=== PATIENT | female | born 1960 | race Caucasian/White ===

== ENCOUNTER → 2018-03-02 | Outpatient (CLI) | payer OTHER ==
[~2018-03-02] MED LIST: DICL500C66 PO; IBU600 PO; LOR5 PO; MULT-145 PO; VITAMIN B12
--- NOTE | 2018-03-02 15:02 | RADIOLOGY IMAGING REPORT ---
FACILITY: [facility] [place] PATIENT NAME: Shellie Stephens : 1960 MR: [id number] V: [id number] EXAM DATE: ORDERING PHYSICIAN: CARLOS SUAZO TECHNOLOGIST: Location: [facility] Patient: Shellie Stephens : 1960 Visit/Account:[id number] Date of Sevice: 03/02/2018 Exam type: SOFT TISSUE NON-SPECIFIC History: Palpable lump superficial to left shoulder Comparison: None. Findings: Multiple sonographic images obtained superior to the left shoulder demonstrate no specific mass cysti c or solid. Real-time imaging by the paper core machine operator demonstrated but appear to be a muscle bundle. If the mass meets of strong clinical concern CT or MR is recommended IMPRESSION: 1. No definite mass identified sonographically superior to the left shoulder. If this remains a str sherrie clinical concern CT or MR recommended for further evaluation Report Dictated By: Monisha Greene MD at 03/02/2018 2:56 PM Report E-Signed By: Monisha Greene MD at 03/02/2018 2:58 PM WSN:[email or web address]
== END ==
LOC: US 13:22
PROVIDERS: ATTEND Nurse Practitioner Family
DX: M25.812 Other specified joint disorders, left shoulder (principal)
CPT/HCPCS: 76999

== ENCOUNTER → 2018-04-12 | Outpatient (CLI) | payer OTHER ==
[~2018-04-12] MED LIST changes: +OMEP40CA48 PO; +RIZA10TA PO
--- NOTE | 2018-04-12 10:33 | RADIOLOGY IMAGING REPORT ---
FACILITY: [facility] [place] PATIENT NAME: Shellie Stephens : 1960 MR: [id number] V: [id number] EXAM DATE: ORDERING PHYSICIAN: GENET FOSTER TECHNOLOGIST: Location: [facility] [place] Patient: Shellie Stephens : 1960 Visit/Account:[id number] Date of Sevice: 04/12/2018 EXAMINATION: CT Abdomen Without Contrast 04/12/2018 4:57 AM HISTORY: Left upper quadrant abdominal wall bulge TECHNIQUE: Spiral scan was through the abdomen without intravenous contrast. One of the following dose optimization techniques was utilized in the performance of this exam: Autom ated exposure control; adjustment of the mA and/or kV according to the patient's size; or use of an i terative reconstruction technique. Specific details can be referenced in the facility's radiology C T exam operational policy. COMPARISON STUDIES: Ultrasound 03/02/2018. FINDINGS: Liver / biliary: Prior cholecystectomy. Negative liver. No biliary dilatation. Pancreas: negative Spleen: negative Adrenal glands: negative Kidneys / retroperitoneum: negative Bowel / peritoneum / mesenteries: negative Vessels: Incidental circumaortic left renal vein. Musculoskeletal / Body wall: Ventral abdominal wall is intact without eventration or herniation. The re is an encapsulated mass just superficial to the muscular abdominal wall in the anterior left flank centered at L1-2 level which measures 10 x 9 x 4.2 cm in axial plane and 5.8 cm craniocaudal. This is mild heterogeneity of internal density although is mostly fatty. Degenerative spurring is present in the spine. Lymph node assessment: negative Lower chest: Right middle lobe and lingular atelectasis or scarring. Indeterminate 4 to 5 mm right l ower lobe micronodule (series 2, image 99). IMPRESSION: 1. Mostly fat density 10 cm mass in the anterolateral left upper quadrant abdominal wall. There is no hernia. Lipoma would be favored although with the heterogeneity in tissue density at a minimum cl inical follow-up will be necessary to exclude low-grade liposarcoma. 2. Indeterminate right lower lobe pulmonary micronodule. Based on size follow-up would not be neces maikol unless clinically indicated in which case a one-year interval would be recommended. Report Dictated By: Keanu Zarco MD at 04/12/2018 10:20 AM Report E-Signed By: Keanu Zarco MD at 04/12/2018 10:29 AM WSN:[email or web address]
== END ==
LOC: CT 00:15
PROVIDERS: ATTEND Surgery
DX: R91.8 Other nonspecific abnormal finding of lung field (principal); R19.00 Intra-abdominal and pelvic swelling, mass and lump, unspecified site
CPT/HCPCS: 74150

== ENCOUNTER 2018-05-05 01:02 | Day surgery (SDC) | payer OTHER ==
[~2018-05-05] VITALS: Ht 157.5 cm; Wt 90.3 kg
[~2018-05-05 01:02] MED LIST changes: +CALC600T63 PO; +CHOL10005 PO; +SCOP1PAT16 TD
[2018-05-05] MEDS ORDERED: LIDOCAINE/SOD BICARB 8.4% SYR ID ONE (10:15)
[2018-05-05] MEDS ORDERED: AMPICILLIN/SULBACT (*) 3 GM VL 3 GM in NS(*) 0.9% 100 ML BAG 100 ML IVPB ONE (10:15)
[2018-05-05] MEDS ORDERED: FAMOTIDINE 20 MG TAB PO ONE (10:15)
[2018-05-05] MEDS ORDERED: MIDAZOLAM 2 MG/2 ML VIAL IVP PRN ×2 (10:15→14:25)
[2018-05-05] MEDS ORDERED: NORMOSOL R SOLN(*) 1000 ML BAG 1,000 ML IV PRN (10:15)
[2018-05-05 11:45] VITALS: BP 118/69
[2018-05-05] MEDS ORDERED: fentaNYL CITR 100 MCG/2 ML AMP ONE ×2 (12:53→16:07)
[2018-05-05] MEDS ORDERED: LIDOCAINE MPF 1% 5 ML VIAL ONE (12:55)
[2018-05-05] MEDS ORDERED: PROPOFOL EMUL(*) 10MG/ML 20 ML 20 ML ONE (12:55)
[2018-05-05] MEDS ORDERED: DEXAMETHASONE SOD PHOS 10MG/ML ONE (12:55)
[2018-05-05] MEDS ORDERED: ONDANSETRON 4 MG/2 ML VIAL ONE (12:55)
[2018-05-05] MEDS ORDERED: ROPIVACAINE 0.5% 20 ML VIAL ONE (14:14)
[2018-05-05] MEDS ORDERED: HALOPERIDOL LACT 5 MG/ML VIAL IM ONE (14:40)
[2018-05-05] MEDS ORDERED: OXYC-854 PO (16:00)
--- NOTE | 2018-05-05 16:04 | Short(Outpt) Discharge Summary ---
Discharge Summary Reason for Hosp/Final Diag: (1) Colon cancer screening Status: Chronic Hospital Course & Plan: Colonoscopy completed without any problems. (2) Subcutaneous mass Status: Chronic Hospital Course & Plan: Subcutaneous masses removed from left supraclavicular region and left upper abdominal quadrant. Departure Discharge to: Home, Self Care Discharge Instructions Home Meds Active Scripts Oxycodone Hcl/Acet 5/325 Mg (ENDOCET 5-325 TABLET) 1 Each Tablet, 1 TAB PO Q4H Y for PAIN, #20 TAB 0 Refills Prov:GENET FOSTER MD 05/05/18 Scopolamine (Scopolamine) 1 Mg/3 Day Patch.td.3, 1 PATCH.72H TD ONCE, #1 PATCH.72H 0 Refills Prov:GENET FOSTER MD 04/26/18 Reported Medications Calcium Carbonate (CALCIUM) 600 Mg Tablet, 1 TAB PO QDAY 04/26/18 Cholecalciferol (Vitamin D3) (VITAMIN D3) 1,000 Unit Tablet, 1 TAB PO QDAY, TAB 04/26/18 Rizatriptan Benzoate (MAXALT) 10 Mg Tablet, 10 MG PO PRN Y for MIGRAINE 04/13/18 Follow up Referrals: General Surgery - 05/24/18 @ Surgery, General with Genet Foster Md You have a follow up appointment scheduled with Dr. Foster on 05/24/18, at 9:30am. Diet: Regular Activity: As Tolerated Special Instructions: You may remove the white surgical dressings on 05/07/18, then you can shower. After showering, leave the incisions open to air but leave the steristrips in place until they fall off on their own. Do not immerse the incisions for 2 weeks. Your colonoscopy was completed without any problems and your prep was excellent (Good Job!!). I didn't find any polyps or other abnormalities and I recommend that your next colonoscopy be in 10 years for screening. GENET FOSTER MD May 05, 2018 16:03
--- NOTE | 2018-05-05 16:12 | Post Operative Progress Note ---
Post Operative Progress Note Date: May 05, 2018 Time: 16:04 Surgeon: Kevin Dictation number: [id number] Anesthesia: LMA by Dr. Bhagat Pre-Op Diagnosis: 1) subcutaneous mass, left supraclavicular area 2) Subcutaneous mass, LUQ of abdomen 3) Colorectal cancer screening, average risk Post-Op Diagnosis: SHAWNA Findings: Masses c/w benign lipomas Normal colonoscopy with excellent bowel prep Procedure(s): 1) excision of 3 cm subcutaneous mass from left supraclavicular area 2) Excision of 10cm subcutaneous mass from left upper abdominal quadrant 3) Colonoscopy Specimen Removed:(May be N/A): 1) Subcutaneous mass, left supraclavicular area 2) Subcutaneous mass, left upper abdominal quadrant Complications: None Fluids: See anesthesia record Estimated Blood Loss: Minimal Date OP Note Dictated: May 05, 2018 Time OP Note Dictated: 16:06 GENET FOSTER MD May 05, 2018 16:12
[2018-05-05 17:00] VITALS: BP 97/51
--- NOTE | 2018-05-05 17:10 | OPERATIVE REPORT 1 ---
EVENT DATE: May 05, 2018 SURGEON: Carlo Brown MD ANESTHESIOLOGIST: Serge Bhagat MD ANESTHESIA: LMA. PREOPERATIVE DIAGNOSES 1. Subcutaneous mass, supraclavicular area. 2. Subcutaneous mass, left upper abdominal quadrant. 3. Colorectal cancer screening, average risk. POSTOPERATIVE DIAGNOSES 1. Subcutaneous mass, superior clavicular area. 2. Subcutaneous mass, left upper abdominal quadrant. 3. Colorectal cancer screening, average risk. PROCEDURES PERFORMED 1. Excision of 3 cm subcutaneous mass from supraclavicular area. 2. Excision of 10 cm subcutaneous mass from left upper abdominal quadrant. 3. Colonoscopy. COMPLICATIONS None. CONDITION Stable. BLOOD LOSS Minimal. FINDINGS Both of these subcutaneous masses are consistent with benign lipomas. The colonoscopy was normal, and the prep was excellent. SPECIMENS 1. Subcutaneous mass, left supraclavicular area. 2. Subcutaneous mass, left upper abdominal quadrant. INDICATIONS This 57-year-old female presented to my office with two subcutaneous masses, and she was due for colon cancer screening. She was wanting to have all of these done, excision of the two masses and the colonoscopy, concurrently. DESCRIPTION OF PROCEDURE The patient was brought into the operating room and placed supine on the operating table. LMA anesthesia was administered, and her left supraclavicular skin and left upper abdominal quadrant were prepped and draped in a sterile fashion. A timeout was completed. I started with the supraclavicular area. I anesthetized the skin overlying the mass and then made an incision in this area , dissecting down through the dermis and subcutaneous fat, and then immediately identifying the lesion which appeared to be a benign lipoma. I used mostly blunt dissection to get around it and then delivered it through the incision and divided the areolar tissue that was holding it to the deep substrate, and then this was passed off the field. The wound was made hemostatic with electrocautery and irrigated and then dried. The skin and pocket were closed with interrupted 3-0 Vicryl sutures, and the skin was closed with 4-0 Monocryl running subcuticular sutures. Skin was cleaned and dried, and Steri-Strips were applied, followed by a sterile surgical dressing. I then turned my attention to her left upper abdominal quadrant and made a 10 cm transverse incision overlying the mass and dissected through the dermis and subcutaneous fat. I identified the mass, dissected completely around it, and it came out very easily and in its entirety, and then this was passed off the field. The pocket was closed with a running 3-0 Vicryl suture, and the skin was closed with interrupted 3-0 Vicryl deep dermal sutures and 4-0 Monocryl running subcuticular suture. Skin was cleaned and dried, and Steri-Strips were applied , followed by a sterile surgical dressing. The patient was then turned into the left lateral decubitus position. Digital rectal exam was completed which was unremarkable. The colonoscope had been set up and tested to ensure it was completely functional. It was then lubricated and inserted to her rectum through the anus. The scope was advanced with no difficulty all the way through to the cecum and also into the terminal ileum, and then I slowly withdrew the scope as I looked at all mucosal surfaces for any abnormalities. I then retroflexed the scope, and it was in the rectum to look at the distal rectum and the upper anal canal. I then straightened the scope out and desufflated the rectum and distal colon and then removed the scope from her body. The prep was excellent, and the colonoscopy was completely normal without any polyps or other abnormalities. Patient was then awakened and LMA removed. She was transported to the recovery room in stable condition having tolerated the procedure without any apparent problems. ANGELES
[2018-05-05 17:15] VITALS: BP 101/53
[2018-05-05 17:30] VITALS: BP 114/58
[2018-05-05 17:34] VITALS: BP 115/78
== END 2018-05-05 17:00 | disposition home or self-care (01) ==
LOC: OR 01:02
PROVIDERS: ATTEND Surgery
DX: Z12.11 Encounter for screening for malignant neoplasm of colon (principal); R19.02 Left upper quadrant abdominal swelling, mass and lump; R22.2 Localized swelling, mass and lump, trunk
CPT/HCPCS: 00812; 22903; 23075; 45378; 88305; 94667; J0295; J1100; J1630; J2001; J2250; J2405; J2704; J2795; J3010; J7050

== ENCOUNTER 2018-08-06 17:37 | Emergency (ER) | payer OTHER ==
[~2018-08-06 17:37] MED LIST changes: +OXYC-854 PO
--- NOTE | 2018-08-06 17:59 | ER Report ---
History and Physical Time Seen By MD: 17:59 Hx. of Stated Complaint: PT CUT R. HEEL ON A GLASS BOTTLE A COUPLE WEEKS AGO. PT CLEANED AND DRESSED WOUND. THEN LAST NIGHT THE PAIN INCREASED SIGNIFICANTLY, PT FELT FOOT WAS WARMER. IS CONCERNED ABOUT INFECTION HPI/ROS CHIEF COMPLAINT: Pain to right heel HISTORY OF PRESENT ILLNESS: 58-year-old female patient presents to emergency room with complaint of pain to the right heel. Patient states she cut her foot while she was in the garden a couple weeks ago. She states that she took good care of her, she tried cleaning it, make sure that he didn't get infected. She states that over the last couple days pain has started to worsen. She states that she has no purulent drainage. She denies any numbness or tingling to the foot. Patient has not taken any medication for this. She states it does hurt significantly whenever she is walking and putting weight on her foot. REVIEW OF SYSTEMS: Respiratory: No cough, no dyspnea. Cardiovascular: No chest pain, no palpitations. Gastrointestinal: No vomiting, no abdominal pain. Musculoskeletal: No back pain. Allergies: Coded Allergies: No Known Allergies (Verified Allergy, Mild, 04/28/18) Home Meds Active Scripts Sulfamethoxazole/Trimet 800-160 Mg Tab (BACTRIM DS TABLET) 1 Each Tablet, 1 TAB PO Q12H, #12 TAB Prov:NORMA ARREGUIN 08/06/18 Reported Medications Calcium Carbonate (CALCIUM) 600 Mg Tablet, 1 TAB PO QDAY 04/26/18 Cholecalciferol (Vitamin D3) (VITAMIN D3) 1,000 Unit Tablet, 1 TAB PO QDAY, TAB 04/26/18 Rizatriptan Benzoate (MAXALT) 10 Mg Tablet, 10 MG PO PRN PRN for MIGRAINE 04/13/18 Discontinued Scripts Oxycodone Hcl/Acet 5/325 Mg (ENDOCET 5-325 TABLET) 1 Each Tablet, 1 TAB PO Q4H PRN for PAIN, #20 TAB 0 Refills Prov:GENET FOSTER MD 05/05/18 Past Medical/Surgical History Patient has a past medical history of migraines, murmur, cholecystitis, occasional alcohol use. Patient has a surgical history of tumors removed from shoulder and abdomen, tubal ligation, hysterectomy, cholecystectomy. Patient has a family medical history of cancer. Reviewed Nurses Notes: Yes Hx Smoking: Yes (QUIT 2016, SMOKED 15 YRS 1PPWK) Smoking Status: Former Smoker Hx Substance Use Disorder: No Hx Alcohol Use: Yes (OCC) Constitutional Vital Sign - Last 24 Hours 08/06/18 08/06/18 08/06/18 08/06/18 17:50 18:00 18:30 18:40 Temp 98.9 Pulse 73 73 67 81 Resp 16 16 B/P (MAP) 143/61 136/84 (101) 138/82 (100) Pulse Ox 94 93 85 92 O2 Delivery Room Air Physical Exam General Appearance: The patient is alert, has no immediate need for airway protection and no current signs of toxicity. Respiratory: Chest is non tender, lungs are clear to auscultation. Cardiac: regular rate and rhythm Gastrointestinal: Abdomen is soft and non tender, no masses, bowel sounds normal. Musculoskeletal: Neck: Neck is supple and non tender. Extremities have full range of motion and are non tender. Skin: No rashes or lesions. Patient does have tenderness to the right heel, there is no purulent drainage. DIFFERENTIAL DIAGNOSIS: After history and physical exam differential diagnosis was considered for cellulitis, abscess, retained foreign body Medical Decision Making EKG/Imaging Imaging FOOT 3 VIEW RIGHT Indication: Pain in the right foot after laceration. Evaluate for foreign body. Comparison: None Available Findings: 3 views of the right foot were obtained. No fracture or dislocation. No bony lesion, periosteal abnormality or degenerative changes. Soft tissue swelling seen lateral aspect. No radiopaque foreign body. IMPRESSION: 1.No acute osseous abnormality of the right foot. No radiopaque foreign body. Report Dictated By: Maged Vanegas at 08/06/2018 6:44 PM Report E-Signed By: Maged Vanegas at 08/06/2018 6:47 PM ED Course/Re-evaluation ED Course Patient was admitted to exam room, history of physical were obtained. Differential diagnoses were considered. On examination lungs are clear, heart was regular, abdomen soft nontender. Patient does have tenderness to the right heel, there is no purulent drainage, there is no redness noted. And x-rays done of the right foot patient her no retained foreign bodies. I was negative. With a history of laceration and pain developing 10 days to weeks after that I believe we're likely looking at a viral infection. I discussed this with the patient. We'll go ahead and place her on Bactrim twice a day for the next 7 days we will give her a dose here in the emergency room and one for the morning and her prescription was sent in to the pharmacy. I discussed this with patient who verbalized understanding and agreement with plan. Decision to Disposition Date: Aug 06, 2018 Decision to Disposition Time: 18:34 Depart Departure Latest Vital Signs Vital Signs Date Time Temp Pulse Resp B/P (MAP) Pulse Ox O2 Delivery O2 Flow Rate FiO2 08/06/18 18:40 81 16 92 08/06/18 18:30 138/82 (100) 08/06/18 17:50 98.9 Room Air Impression: Primary Impression: Cellulitis of foot Condition: Improved Disposition: HOME OR SELF-CARE Referrals: CARLOS SUAZO (PCP) New Scripts Sulfamethoxazole/Trimet 800-160 Mg Tab (BACTRIM DS TABLET) 1 Each Tablet 1 TAB PO Q12H, #12 TAB Prov: NORMA ARREGUIN 08/06/18 Patient Instructions: Cellulitis (ED) Additional Instructions: Limit activity by pain. Elevate the foot. Take Tylenol or Ibuprofen as needed for pain. Follow up with your primary care provider in the next week. Return to the ER if condition worsens. Take medication as prescribed. NORMA ARREGUIN Aug 06, 2018 17:59
[2018-08-06 18:30] VITALS: BP 138/82
[2018-08-06] MEDS ORDERED: SULF-198 PO (18:32)
[2018-08-06] MEDS ORDERED: TRIMETHOPRIM/SULFA 160-800 TH 2 TAB/BOTTLE PO ONE (18:35)
--- NOTE | 2018-08-06 18:51 | RADIOLOGY IMAGING REPORT ---
FACILITY: [facility] [place] PATIENT NAME: Shellie Stephens : 1960 MR: [id number] V: [id number] EXAM DATE: ORDERING PHYSICIAN: NORMA ARREGUIN TECHNOLOGIST: [place] [facility] [place] : 1960 Visit/Account:[id number] Date of Sevice: 08/06/2018 FOOT 3 VIEW RIGHT Indication: Pain in the right foot after laceration. Evaluate for foreign body. Comparison: None Available Findings: 3 views of the right foot were obtained. No fracture or dislocation. No bony lesion, periosteal abnormality or degenerative changes. Soft tiss ue swelling seen lateral aspect. No radiopaque foreign body. IMPRESSION: 1.No acute osseous abnormality of the right foot. No radiopaque foreign body. Report Dictated By: Maged Vanegas at 08/06/2018 6:44 PM Report E-Signed By: Maged Vanegas at 08/06/2018 6:47 PM WSN:[id number]
== END 2018-08-06 18:53 | disposition home or self-care (01) ==
LOC: ER 18:01
DX: L03.115 Cellulitis of right lower limb (principal)
CPT/HCPCS: 99283

== ENCOUNTER 2019-05-17 20:23 | Emergency (ER) | payer OTHER ==
[~2019-05-17 20:23] MED LIST changes: +SULF-198 PO
[2019-05-17 20:30] VITALS: BP 131/73
--- NOTE | 2019-05-17 20:30 | ER Report ---
History and Physical Time Seen By MD: 20:28 HPI/ROS CHIEF COMPLAINT: Right foot pain HISTORY OF PRESENT ILLNESS: This is a 58-year-old female who presents to the emergency department for right foot pain. Patient states that today she developed some right foot pain, has been increasing in intensity throughout the day and this evening. No fevers or chills. No swelling or cellulitic appearance to the foot. The foot is not hot. No recent injuries. She did recently start wearing her sandals which did not provide a significant amount of support. REVIEW OF SYSTEMS: Respiratory: No cough, no dyspnea. Cardiovascular: No chest pain, no palpitations. Gastrointestinal: No vomiting, no abdominal pain. Musculoskeletal: As above. Allergies: Coded Allergies: No Known Allergies (Verified Allergy, Mild, 05/17/19) Home Meds Discontinued Reported Medications Calcium Carbonate (CALCIUM) 600 Mg Tablet, 1 TAB PO QDAY 04/26/18 Cholecalciferol (Vitamin D3) (VITAMIN D3) 1,000 Unit Tablet, 1 TAB PO QDAY, TAB 04/26/18 Rizatriptan Benzoate (MAXALT) 10 Mg Tablet, 10 MG PO PRN PRN for MIGRAINE 04/13/18 Discontinued Scripts Sulfamethoxazole/Trimet 800-160 Mg Tab (BACTRIM DS TABLET) 1 Each Tablet, 1 TAB PO Q12H, #12 TAB Prov:NORMA ARREGUIN DISPATCH COORDINATOR 08/06/18 Past Medical/Surgical History The patient has a past medical and surgical history of headaches, heart murmur, history of smoking cigarettes, gallbladder disease, cholecystectomy, wears glasses, total hysterectomy, tubal ligation, right knee arthroscopic meniscus repair, tumors removed from shoulder and abdomen. Reviewed Nurses Notes: Yes Hx Smoking: Yes (QUIT 2016, SMOKED 15 YRS 1PPWK) Smoking Status: Former Smoker Hx Substance Use Disorder: No Hx Alcohol Use: Yes (OCC) Constitutional Vital Sign - Last 24 Hours 05/17/19 20:30 Temp 97.9 Pulse 73 Resp 20 B/P (MAP) 131/73 Pulse Ox 92 O2 Delivery Room Air Physical Exam General Appearance: The patient is alert, has no immediate need for airway protection and no current signs of toxicity. Eyes: Pupils equal and round no injection. Respiratory: Chest is non tender, lungs are clear to auscultation. Cardiac: regular rate and rhythm. Gastrointestinal: Abdomen is soft and non tender, no masses, bowel sounds normal. Musculoskeletal: Neck: Neck is supple and non tender. Extremities no swelling, cellulitis, foot is not hot. Pain to the heel and medial aspect of the foot. CMS intact. Good flexion and extension with some discomfort. Skin: No rashes or lesions. DIFFERENTIAL DIAGNOSIS: After history and physical exam differential diagnosis was considered for gout, septic arthritis, stress fracture, plantar fasciitis. Medical Decision Making EKG/Imaging Imaging PATIENT NAME: Shellie Stephens : 1960 MR: [id number] V: [id number] EXAM DATE: ORDERING PHYSICIAN: JUAN LÓPEZ TECHNOLOGIST: Location: [facility] Patient: Shellie Stephens : 1960 Visit/Account:[id number] Date of Sevice: 05/17/2019 INDICATION: heel pain. DATE: 05/17/2019 9:52 PM. TECHNIQUE: FOOT 3 VIEWS RIGHT COMPARISON: Foot radiographs August 06, 2018 FINDINGS: Normal alignment without evidence of fracture or dislocation. IMPRESSION: No acute osseous abnormality. Report Dictated By: Elisa Tracy MD at 05/17/2019 9:52 PM Report E-Signed By: Elisa Tracy MD at 05/17/2019 9:54 PM WSN:[email or web address] ED Course/Re-evaluation ED Course The patient was admitted to room. A history and physical were obtained. Differential diagnoses were Considered. An x-ray of the right foot was obtained. 800 mg ibuprofen given. The patient has significant relief of her symptoms after the medications were administered. X-ray of the foot was negative for any acute osseous abnormalities. I did review the results with the patient. I did tell her that this is likely an irritation of the fascia, I did recommend wearing good supportive shoes, she agreed with the plan of care and discharged home. Decision to Disposition Date: May 17, 2019 Decision to Disposition Time: 21:50 Depart Departure Latest Vital Signs Vital Signs Date Time Temp Pulse Resp B/P (MAP) Pulse Ox O2 Delivery O2 Flow Rate FiO2 05/17/19 20:30 97.9 73 20 131/73 92 Room Air Impression: Primary Impression: Right foot pain Condition: Improved Disposition: HOME OR SELF-CARE Referrals: CARLOS SUAZO (PCP) Patient Instructions: Foot Contusion (ED) Additional Instructions: Please stop wearing your sandals and start wearing lace up shoes that provide support to the foot. keep the foot elevated as much as possible. Take Ibuprofen and Tylenol for pain. This may take several days to resolve. Try to minimize the amount of time walking. Drink plenty of water. If no improvement within a week follow up with [facility] for reevaluation. Return to the ED for any other concerns or worsening symptoms. JUAN LÓPEZ DISPATCH COORDINATOR-BC May 17, 2019 20:30
[2019-05-17] MEDS ORDERED: IBUPROFEN 800 MG TAB PO ONE (20:45)
--- NOTE | 2019-05-17 21:59 | RADIOLOGY IMAGING REPORT ---
FACILITY: [facility] PATIENT NAME: Shellie Stephens : 1960 MR: [id number] V: [id number] EXAM DATE: ORDERING PHYSICIAN: JUAN LÓPEZ TECHNOLOGIST: Location: [facility] Patient: Shellie Stephens : 1960 Visit/Account:[id number] Date of Sevice: 05/17/2019 INDICATION: heel pain. DATE: 05/17/2019 9:52 PM. TECHNIQUE: FOOT 3 VIEWS RIGHT COMPARISON: Foot radiographs August 06, 2018 FINDINGS: Normal alignment without evidence of fracture or dislocation. IMPRESSION: No acute osseous abnormality. Report Dictated By: Elisa Tracy MD at 05/17/2019 9:52 PM Report E-Signed By: Elisa Tracy MD at 05/17/2019 9:54 PM WSN:[email or web address]
== END 2019-05-17 21:57 | disposition home or self-care (01) ==
LOC: ER 20:58
DX: M79.671 Pain in right foot (principal)
CPT/HCPCS: 99283